=== PATIENT | female | born 2000 | race African-American/Black ===

== ENCOUNTER 2025-03-06 22:35 | Observation (INO) ==
--- NOTE | 2025-03-06 23:09 | Emergency Department Note ---
HPI - Chest Pain General Chief Complaint: Chest Pain Stated Complaint: chest pain, dizziness Time Seen by Provider: 03/06/25 23:00 Source: patient Mode of arrival: walk-in Limitations: no limitations History of Present Illness HPI narrative: This is a 25 year old female patient that presents to the ER with c/o chest pain and N/V today. Patient denies any SOB, back pain, fever, abdominal pain, numbness, tingling, or weakness. patient states this has happened before and dx with anxiety MD complaint: Reports chest pain Onset (ago): hour(s) (3) Timing of current episode: Reports constant Prior episodes: Yes Onset: Reports during rest Pain location: Reports substernal Pain radiation: Reports none Severity: mild Quality: Reports tightness Relieving factors: Reports nothing Exacerbating factors: Reports nothing Associated symptoms: Reports nausea and vomiting Treatment prior to arrival: Reports none Risk Factors Coronary artery disease risk factors: Reports none Thoracic aortic dissection risk factors: Reports none Pulmonary embolism risk factors: Reports none Related Data Allergies Allergy/AdvReac Type Severity Reaction Status Date / Time No Known Drug Allergies Allergy Verified 03/06/25 23:06 Review of Systems Status of ROS 10 or more systems reviewed and unremark able except as noted in history and below Constitutional Denies: fever, chills, change in weight, fatigue, malaise or night sweats Eyes Denies: change in vision, blurry vision, blind spots, light sensitivity, eye discomfort or eye discharge Ears, nose, mouth, and throat Denies: throat pain, neck pain, throat swelling, difficulty swallowing, hoarseness, mouth pain or swelling of lips/tongue Cardiovascular Reports: chest pain; Denies: palpitations, edema, swelling of f eet/ankles, lightheadedness, shortness of breath with exertion or shortness of breath when lying down Respiratory Denies: shortness of breath, cough, wheezing, stridor, pain on inspiration or change in phlegm color Gastrointestinal Reports: nausea and vomiting; Denies: abdominal pain, coffee grounds in vomit, heartburn, diarrhea, constipation, bloating, belching, feeling full early or change in bowel habits Genitourinary Denies: painful urination, urinary frequency, urinary urgency, urinary incontinence, blood in urine, difficulty voiding or decreased urine ouput Musculoskeletal Denies: back pain, neck pain, extremity pain, extremity swelling, joint pain, limited range of motion or joint swelling Integumentary/Breast Denies: rash, itching, redness, skin pain, skin tenderness or skin swelling Neurological Denies: headache, numbness in extremities, weakness in extremities, lack of coordination or dizziness Psychiatric Denies: anxiety, mood swings, panic attacks, change in sleep patter n, hopelessness or loss of interest Endocrine Denies: excessive urination, excessive thirst, fatigue, cold intolerance, excessive sweating or flushing Hematologic/Lymphatic Denies: easy bruising, easy bleeding or enlarged lymph nodes Allergic/Immunologic Denies: hives, throat swelling, tongue swelling, facial sw elling, wheezing or itchy eyes Exam Constitutional: normal general appearance and no apparent distress Vital Signs - 24 hr 03/06/25 23:04 03/06/25 23:09 Temperature 98.3 F Pulse Rate 98 H Respiratory Rate 25 H Blood Pressure 129/72 Pulse Oximetry 100 100 Oxygen Delivery Me thod Room Air Room Air HENMT: normocephalic, head/scalp atraumatic, hearing grossly normal bilaterally, external ears normal, EACs normal, nasal mucous membranes normal, external nose normal, oral mucous membranes normal and oropharynx normal Eyes: PERRL, EOMs intact bilaterally, conjunctivae normal and no scleral icterus Neck/C-Spine: visual inspection normal and trachea midline Lymph: no lymphadenopathy noted Chest: inspection of chest normal and palpation of chest normal Respiratory: breath sounds equal bilaterally, normal respiratory effort, clear to auscultation bilaterally, no wheezes, no rales, no retractions, no use of accessory muscles and chest percussion normal Cardiovascular: heart rate abnormal (tachycardic), regular rhythm noted, no gallop, no rub, no murmur, no JVD, no clicks, peripheral pulses 2+ throughout, no bruits noted and no additional abnormal heart sounds Gastrointestinal: abdomen normal to inspection, abdomen soft to palpation, nontender to palpation, nontender to percussion, nondistended, normoactive bowel sounds, no hepatosplenomegaly, no masses, no pulsatile mass, no ascites and no hernia Genitourinary: no CVA tenderness Back/Pelvis: spine normal to inspection Extremities: normal to inspection, normal to palpation, no tenderness, full ROM, no joint enlargement and no deformity Neurology: final expense agent II-XII intact, no movement abnormality noted, no focal motor deficit noted, no sensory deficits noted, gait normal, speech normal, coordination normal, no pronator drift noted, no fasciculations noted and GCS normal Psychiatry: mental status grossly normal, oriented x3, thought process normal, cooperative and affect normal Skin: skin color normal and no rash Course Course Hospital Course: 0038: VSS, no s/s of acute distress noted. Due to patients low potassium will admit patient to the medical floor. VSS, no s/s of acute distress noted Vital Signs Vital signs: Vital Signs Temperature 98.3 F 03/06/25 23:04 Pulse Rate 98 H 03/06/25 23:04 Respiratory Rate 25 H 03/06/25 23:04 Blood Pressure 129/72 03/06/25 23:04 Pulse Oximetry 100 03/06/25 23:04 Oxygen Delivery Method Room Air 03/06/25 23:04 Temperature 98.3 F 03/06/25 23:04 Pulse Rate 98 H 03/06/25 23:04 Respiratory Rate 25 H 03/06/25 23:04 Blood Pressure 129/72 03/06/25 23:04 Pulse Oximetry 100 03/06/25 23:09 Oxygen Delivery Method Room Air 03/06/25 23:09 MDM - Chest Pain Differential Diagnosis Differential diagnosis: Likely stable angina Medical Records Data Attestation: I reviewed the patient's medical records. Lab Data Attestation: I reviewed the patient's lab results. Labs: Lab Results 03/06/25 03/06/25 Range/Units 22:40 23:20 WBC 9.2 (4.3-9.3) K/uL RBC 3.2 L (4.00-5.50) M/uL Hgb 11.0 L (12.5-15.8) gm/dL Hct 32.4 L (35.9-46.7) % MCV 99.9 H (81.0-93.7) fl MCH 33.9 H (27.6-32.2) pg MCHC 33.9 (33.1-35.3) g/dl RDW 19.4 H (11.4-14.2) % Plt Count 268 (152-353) K/uL MPV 8.3 (6.9-10.8) fl Gran % 80.0 H (47.8-71.3) % Lymph % (Auto) 15.1 L (20.0-43.0) % [place] % (Auto) 4.3 (3.6-9.8) % Eos % (Auto) 0.2 L (0.4-2.8) % Baso % (Auto) 0.4 (0.1-0.85) Lymph # (Auto) 1.4 (1.1-3.1) [place] # (Auto) 0.4 L (1.1-3.1) Eos # (Auto) 0.0 (0.0-0.2) Baso # (Auto) 0.0 (0.0-0.1) Absolute Gran (auto) 7.3 H (2.3-6.0) D-Dimer <100 L (100-600) ng/mL Sodium 135 L (136-145) mmol/L Potassium 2.9 L (3.6-5.2) mmol/L Chloride 95.0 L (98-107) mmol/L Carbon Dioxide 25 (21-32) mmol/L Anion Gap 15.0 H (4-14) mEq/L BUN 9 (7-18) mg/dL Creatinine 0.8 (0.6-1.3) mg/dL Estimated GFR 104.2 (>59.9) Glucose 156 H (70-110) mg/dL Calcium 9.0 (8.5-10.1) mg/dL Total Bilirubin 1.22 H (0.0-1.0) mg/dL AST 178 H (15-37) U/L ALT 41 (30-65) U/L Alkaline Phosphatase 85 (50-136) U/L Troponin I High Sens 5.30 (4.0-60.4) ng/L Total Protein 8.4 H (6.4-8.2) g/dL Albumin 3.8 (3.4-5.0) g/dL Urine Test Negative (Negative) Imaging Data Imaging ordered: Chest x-ray and CT scan - abdomen Attestation: I have reviewed the pertinent imaging results. My impression: cxr: negative ECG Data Attestation: I have reviewed the pertinent ECG results. Discharge Plan Discharge Patient Disposition: Admitted As Observation Chief Complaint: Chest Pain Clinical Impression: Chest pain, Nausea & vomiting, Hypokalemia, Anxiety Print Language: Azeri Referrals: Vishnu Love MD [Primary Care Provider] - Time of Disposition: 00:44 [facility] Medical History Palpitations HTN (hypertension) Social History Smoking status: unknown if ever smoked Feel stressed/tense/nervous/anxious/difficulty sleeping: not at all
[2025-03-06] MEDS: ONDANSETRON HCL/PF 4 MG/2 ML VIAL INJ STA (23:34)
[2025-03-06] MEDS: 0.9 % SODIUM CHLORIDE 1000 ML 1,000 ML IV STA (23:35)
[2025-03-06] MEDS ORDERED: 0.9 % SODIUM CHLORIDE 1000 ML 1,000 ML IV ONE (23:37)
[2025-03-06 23:43] LABS: Basophils%(Percent) Auto 0.4 (0.1-0.85); Eosinophils%(Percent) Auto 0.2 % (0.4-2.8); Granulocytes#(Absolute)- Auto 7.3 (2.3-6.0); Hematocrit 32.4 % (35.9-46.7); Mean Corpuscular Volume 99.9 fl (81.0-93.7); Monocytes #(Absolute)- Auto 0.4 (1.1-3.1); Monocytes %(Percent)- Auto 4.3 % (3.6-9.8); Platelet Count 268 K/uL (152-353); White Blood Count 9.2 K/uL (4.3-9.3)
[2025-03-07 00:01] LABS: Potassium 2.9 mmol/L (3.6-5.2)
[2025-03-07] MEDS ORDERED: POTASSIUM CL 20 MEQ/100 ML SOL 20 MEQ/100 ML PIGGYBACK IV ONE (00:37)
[2025-03-07] MEDS ORDERED: POTASSIUM CHLORIDE 20 MEQ TAB.ER.PRT ONE (00:38)
[2025-03-07] MEDS ORDERED: LORazepam 1 MG TABLET ONE (00:38)
[2025-03-07] MEDS: LORazepam 2 MG/ML VIAL IVP ONE (00:39)
[2025-03-07] MEDS: POTASSIUM CHLORIDE 20 MEQ TAB.ER.PRT PO ONE (00:40)
[2025-03-07] MEDS: LORazepam 1 MG TABLET PO ONE (01:05)
[2025-03-07] MEDS: POTASSIUM CL 20 MEQ/100 ML SOL 40 MEQ/200 ML PIGGYBACK IV ONE (01:06)
[2025-03-07] MEDS: POTASSIUM CL 20 MEQ/100 ML SOL 20 MEQ/100 ML PIGGYBACK IV ONE (01:15)
[2025-03-07] MEDS ORDERED: ONDANSETRON HCL/PF 4 MG/2 ML VIAL IVP PRN (01:29)
[2025-03-07] MEDS: LORazepam 1 MG TABLET PO PRN (02:30)
[2025-03-07] MEDS: 0.9 % SODIUM CHLORIDE 1000 ML 1,000 ML IV SCH (02:33)
[2025-03-07] MEDS: MORPHINE SULFATE 2 MG/ML CARTRIDGE IV PRN (03:10)
[2025-03-07 05:20] LABS: Amphetamine Screen Urine NEG. (NEGATIVE); Cannabinoid Screen Urine NEG. (NEGATIVE); Cocaine Screen Urine NEG. (NEGATIVE); Methadone Screen Urine NEG. (NEGATIVE); Opiate Screen Urine NEG. (NEGATIVE)
[2025-03-07 05:38] LABS: Basophils%(Percent) Auto 0.3 (0.1-0.85); Eosinophils%(Percent) Auto 0.1 % (0.4-2.8); Granulocytes % - Auto 80.1 % (47.8-71.3); Granulocytes#(Absolute)- Auto 6.3 (2.3-6.0); Monocytes #(Absolute)- Auto 0.4 (1.1-3.1); Monocytes %(Percent)- Auto 5.3 % (3.6-9.8); Platelet Count 210 K/uL (152-353); White Blood Count 7.9 K/uL (4.3-9.3)
[2025-03-07 06:28] LABS: Potassium 3.6 mmol/L (3.6-5.2)
[2025-03-07] MEDS ORDERED: 0.9 % SODIUM CHLORIDE 1000 ML 1,000 ML IV SCH (08:00)
[2025-03-07] MEDS ORDERED: SODIUM CHLORIDE 0.9% INJ SCH (08:00)
[2025-03-07] MEDS ORDERED: PHENOBARBITAL SODIUM INJ SCH (08:00)
[2025-03-07] MEDS: PHENobarbitaL sodium 65 MG/ML VIAL ONE (08:06)
[2025-03-07] MEDS ORDERED: PHENobarbitaL sodium 65 MG/ML VIAL ONE ×2 (08:58→09:58)
[2025-03-07] MEDS: 0.9 % SODIUM CHLORIDE 500 ML IV ONE (09:03)
[2025-03-07] MEDS: SODIUM CHLORIDE 0.9% IV PRN (09:17)
[2025-03-07] MEDS: PHENOBARBITAL SODIUM IV PRN (09:17)
[2025-03-07] MEDS: PANTOPRAZOLE SODIUM 40 MG TABLET.DR PO SCH (09:54)
[2025-03-07] MEDS: ENOXAPARIN SODIUM 40 MG/0.4 ML SYRINGE SUBQ SCH (09:54)
[2025-03-07] MEDS: [UNRECOGNIZED DRUG - OTHER] IV SCH (10:18)
[2025-03-07] MEDS: FOLIC ACID IV SCH (10:18)
[2025-03-07] MEDS: 0.9 % SODIUM CHLORIDE 50 ML IV ONE (10:18)
[2025-03-07] MEDS: THIAMINE HCL IV SCH (10:18)
[2025-03-07] MEDS: MULTIVITAMIN IV SCH (10:18)
--- NOTE | 2025-03-07 11:37 | History & Physical Report ---
H&P: HPI History of Present Illness Chief complaint: chest pain, hypokalemia, N/V, anxiety Narrative: This is a 25 year old female patient that presents to the ER with c/o chest pain and N/V today. Patient denies any SOB, back pain, fever, abdominal pain, numbness, tingling, or weakness. patient states this has happened before and dx with anxiety. Admitted patient to med/surg for further observation and treatment. Patient agrees to receive treatment for alcohol abuse at this time. Review of Systems Status of ROS 10 or more systems reviewed and unremark able except as noted in history and below Constitutional Denies: fever, chills, change in weight, fatigue, malaise or night sweats Eyes Denies: change in vision, blurry vision, blind spots, light sensitivity, eye discomfort or eye discharge Ears, nose, mouth, and throat Denies: throat pain, neck pain, throat swelling, difficulty swallowing, hoarseness, mouth pain or swelling of lips/tongue Cardiovascular Reports: chest pain; Denies: palpitations, edema, swelling of feet/ankles, lightheadedness, shortness of breath with exertion or shortness of breath when lying down Respiratory Denies: shortness of breath, cough, wheezing, stridor, pain on inspiration or change in phlegm color Gastrointestinal Reports: nausea and vomiting; Denies: abdominal pain, coffee grounds in vomit, heartburn, diarrhea, constipation, bloating, belching, difficulty swallowing, feeling full early or change in bowel habits Genitourinary Denies: painful urination, urinary frequency, urinary urgency, urinary incontinence, blood in urine, difficulty voiding or decreased urine ouput Musculoskeletal Denies: back pain, neck pain, extremity pain, extremity swelling, joint pain, limited range of motion or joint swelling Integumentary/Breast Denies: rash, itching, redness, skin pain, skin tenderness or skin swelling Neurological Denies: headache, numbness in extremities, weakness in extremities, lack of coordination or dizziness Psychiatric Denies: anxiety, mood swings, panic attacks, change in sleep pattern, hopelessness or loss of interest Endocrine Denies: excessive urination, excessive thirst, fatigue, cold intolerance, excessive sweating or flushing Hematologic/Lymphatic Denies: easy bruising, easy bleeding or enlarged lymph nodes Allergic/Immunologic Denies: hives, throat swelling, tongue swelling, facial swelling, wheezing or itchy eyes PFSH PFSH Medical History Palpitations HTN (hypertension) Social History Smoking status: unknown if ever smoked Problems where you live: no known problems Highest level of school completed/degree received: high school Feel stressed/tense/nervous/anxious/difficulty sleeping: not at all Meds Home Medications and Allergies Home Medications Medication Instructions Recorded Confirmed Type metoprolol tartrate 50 mg tablet 50 mg PO Q12H 03/07/25 03/07/25 History olmesartan 20 mg tablet 20 mg PO DAILY 03/07/25 03/07/25 History Allergies Allergy/AdvReac Type Severity Reaction Status Date / Time No Known Drug Allergies Allergy Verified 03/07/25 02:25 Exam Exam: Patient in myers's position upon entering room for exam. Constitutional: abnormal general appearance (disheveled), distress noted (mild), average body habitus, no limitations and alert Vital Signs - 24 hr 03/06/25 23:04 03/06/25 23:09 03/07/25 00:00 Temperature 98.3 F 98.6 F Pulse Rate 98 H 102 H Pulse Rate [Left] Respiratory Rate 25 H 17 Blood Pressure 129/72 114/74 Blood Pressure [Le ft Arm] Pulse Oximetry 100 100 [facility] Room [facility] 03/07/25 01:00 03/07/25 01:11 03/07/25 01:19 Temperature Pulse Rate 134 H Pulse Rate [Left] 162 H Respiratory Rate 18 Blood Pressure 132/88 114/74 Blood Pressure [Le ft Arm] Pulse Oximetry 98 [facility] Room Air 03/07/25 01:30 03/07/25 01:41 03/07/25 02:00 Temperature Pulse Rate 118 H 119 H Pulse Rate [Left] Respiratory Rate 18 18 Blood Pressure 133/82 139/101 136/84 Blood Pressure [Le ft Arm] Pulse Oximetry 98 98 [facility] Room Air 03/07/25 02:00 03/07/25 02:03 03/07/25 02:33 Temperature 98.6 F 98.8 F Pulse Rate 119 H Pulse Rate [Left] 162 H 126 H Respiratory Rate 18 22 Blood Pressure 136/84 Blood Pressure [Le ft Arm] 139/101 Pulse Oximetry 98 100 Oxygen Delivery Tn thod Room Air 03/07/25 02:36 03/07/25 02:45 03/07/25 03:01 Temperature 98.8 F Pulse Rate Pulse Rate [Left] 126 H 120 H 142 H Respiratory Rate 22 Blood Pressure Blood Pressure [Le ft Arm] 139/101 Pulse Oximetry 100 [facility] 03/07/25 03:04 03/07/25 03:05 03/07/25 03:05 Temperature Pulse Rate Pulse Rate [Left] 136 H 144 H 153 H Respiratory Rate Blood Pressure Blood Pressure [Le ft Arm] Pulse Oximetry Oxygen Delivery Tn thod 03/07/25 03:21 03/07/25 03:32 03/07/25 03:41 Temperature Pulse Rate Pulse Rate [Left] 133 H 124 H 135 H Respiratory Rate Blood Pressure Blood Pressure [Le ft Arm] Pulse Oximetry Oxygen Delivery Tn thod 03/07/25 03:46 03/07/25 04:01 03/07/25 04:05 Temperature 98.6 F Pulse Rate Pulse Rate [Left] 125 H 138 H 115 H Respiratory Rate 18 Blood Pressure Blood Pressure [Le ft Arm] 131/93 Pulse Oximetry 98 [facility] 03/07/25 04:15 03/07/25 04:30 03/07/25 04:57 Temperature Pulse Rate Pulse Rate [Left] 114 H 120 H 97 H Respiratory Rate Blood Pressure Blood Pressure [Le ft Arm] Pulse Oximetry Oxygen Delivery Tn thod 03/07/25 05:30 03/07/25 06:22 03/07/25 08:00 Temperature 98.4 F Pulse Rate Pulse Rate [Left] 108 H 118 H 118 H Respiratory Rate 19 Blood Pressure Blood Pressure [Le ft Arm] 140/100 Pulse Oximetry 98 [facility] HENMT: normocephalic, head/scalp atraumatic, hearing grossly normal bilaterally, external ears normal, EACs normal, nasal mucous membranes normal, external nose normal, oral mucous membranes normal and oropharynx normal Eyes: PERRL, EOMs intact bilaterally, conjunctivae normal and no scleral icterus Neck/C-Spine: visual inspection normal and trachea midline Lymph: no lymphadenopathy noted Chest: inspection of chest normal and palpation of chest normal Respiratory: breath sounds equal bilaterally, normal respiratory effort, clear to auscultation bilaterally, no wheezes, no rales, no retractions, no use of accessory muscles and chest percussion normal Cardiovascular: heart rate abnormal (tachycardic), regular rhythm noted, no gallop, no rub, no murmur, no JVD, no clicks, peripheral pulses 2+ throughout, no bruits noted and no additional abnormal heart sounds Gastrointestinal: abdomen normal to inspection, abdomen soft to palpation, nontender to palpation, nontender to percussion, nondistended, normoactive bowel sounds, no hepatosplenomegaly, no masses, no pulsatile mass, no ascites and no hernia Genitourinary: no CVA tenderness Back/Pelvis: spine normal to inspection Extremities: normal to inspection, normal to palpation, no tenderness, full ROM, no joint enlargement and no deformity Neurology: scalemaker II-XII intact, no movement abnormality noted, no focal motor deficit noted, no sensory deficits noted, gait normal, speech normal, coordination normal, no pronator drift noted, no fasciculations noted and GCS normal Psychiatry: mental status grossly normal, oriented x3, thought process normal, cooperative and affect normal Feel stressed/tense/nervous/anxious/difficulty sleeping: not at all Skin: skin color abnormal Reports (pale), no rash, skin turgor abnormal Reports (tenting), no petechiae, no mottling and nails normal Assessment and Plan Assessment and Plan (1) Alcohol withdrawal delirium, acute, hyperactive: Code(s): F10.931 - Alcohol use, unspecified with withdrawal delirium (2) Chest pain: Qualifiers: Chest pain type: precordial pain Qualified Code(s): R07.2 - Precordial pain Code(s): R07.9 - Chest pain, unspecified (3) Hypokalemia: Code(s): E87.6 - Hypokalemia (4) Tachycardia: Code(s): R00.0 - Tachycardia, unspecified (5) Nausea & vomiting: Qualifiers: Vomiting type: unspecified Qualified Code(s): R11.2 - Nausea with vomiting, unspecified Code(s): R11.2 - Nausea with vomiting, unspecified (6) ETOH abuse: Code(s): F10.10 - Alcohol abuse, uncomplicated (7) Anxiety: Code(s): F41.9 - Anxiety disorder, unspecified (8) HTN (hypertension): Qualifiers: Hypertension type: primary hypertension Qualified Code(s): I10 - Essential (primary) hypertension Code(s): I10 - Essential (primary) hypertension (9) Palpitations: Code(s): R00.2 - Palpitations (10) Anemia: Qualifiers: Anemia type: iron deficiency Iron deficiency anemia type: inadequate dietary iron intake Qualified Code(s): D50.8 - Other iron deficiency anemias Code(s): D64.9 - Anemia, unspecified (11) Hyponatremia: Code(s): E87.1 - Hypo-osmolality and hyponatremia (12) Hypochloremia: Code(s): E87.8 - Other disorders of electrolyte and fluid balance, not elsewhere classified (13) Hypocalcemia: Code(s): E83.51 - Hypocalcemia (14) Elevated bilirubin: Code(s): R17 - Unspecified jaundice (15) Hyperproteinemia: Code(s): E88.09 - Other disorders of plasma-protein metabolism, not elsewhere classified (16) Hypoalbuminemia: Code(s): E88.09 - Other disorders of plasma-protein metabolism, not elsewhere classified (17) Folate deficiency: Code(s): E53.8 - Deficiency of other specified B group vitamins Plan Sodium Chloride 1,000 mls @ 125 mls/hr IV CONT and start banana bag to make total fluids 150 ml per hour Phenobarbital Sodium 260 mg in Sodium Chloride 54 mls @ 100 mls/hr INJ ONCE Pantoprazole Sodium 40 mg PO BID Enoxaparin Sodium 40 mg SUBQ DAILY Folic Acid 1 mg/Thiamine Hcl 100 mg/Multivitamins 10 ml/Magnesium Sulfate 2 gm in Sodium Chloride 1,015.2 mls @ 100 mls/hr IV DAILY restart home metoprolol as she has been out recently Ondansetron Hcl 4 mg IVP Q6H PRN Morphine Sulfate 2 mg IV Q4H PRN Lorazepam 1 mg PO Q6H PRN Phenobarbital Sodium 130 mg in Sodium Chloride 52 mls @ 100 mls/hr IV Q30M PRN CIWA Protocol Results Labs Labs: CBC 03/06/25 03/07/25 Range/Units 23:20 05:30 WBC 9.2 7.9 (4.3-9.3) K/uL RBC 3.2 L 2.8 L (4.00-5.50) M/uL Hgb 11.0 L 9.3 L (12.5-15.8) gm/dL Hct 32.4 L 28.0 L (35.9-46.7) % Plt Count 268 210 (152-353) K/uL Gran % 80.0 H 80.1 H (47.8-71.3) % Lymph % (Auto) 15.1 L 14.2 L (20.0-43.0) % [place] % (Auto) 4.3 5.3 (3.6-9.8) % Eos % (Auto) 0.2 L 0.1 L (0.4-2.8) % Baso % (Auto) 0.4 0.3 (0.1-0.85) Lymph # (Auto) 1.4 1.1 (1.1-3.1) [place] # (Auto) 0.4 L 0.4 L (1.1-3.1) Eos # (Auto) 0.0 0.0 (0.0-0.2) Baso # (Auto) 0.0 0.0 (0.0-0.1) Absolute Gran (auto) 7.3 H 6.3 H (2.3-6.0) CMP 03/06/25 03/07/25 23:20 05:30 Sodium 135 L 138 Potassium 2.9 L 3.6 Chloride 95.0 L 101.0 Carbon Dioxide 25 28 BUN 9 7 Creatinine 0.8 0.6 Glucose 156 H 95 Calcium 9.0 8.1 L Liver Function 03/06/25 03/07/25 Range/Units 23:20 05:30 Total Bilirubin 1.22 H 1.11 H (0.0-1.0) mg/dL AST 178 H 148 H (15-37) U/L ALT 41 32 (30-65) U/L Alkaline Phosphatase 85 69 (50-136) U/L Albumin 3.8 3.1 L (3.4-5.0) g/dL Pulse Oximetry Attestation: I have reviewed the pertinent pulse oximetry results. ECG Attestation: I have reviewed the pertinent ECG results. Prior ECG tracings: available for review Imaging Imaging ordered: Chest x-ray and CT scan - abdomen Radiologist's impression: XR CHEST 1V Date of Service: 03/06/25 HISTORY: CHEST pain; COMPARISON: Prior study or studies were utilized for comparison during interpretation with the most relevant dated 04/23/2024 TECHNIQUE: XR CHEST 1V FINDINGS: Chest: Lines and tubes: None Mediastinum: Cardiac and mediastinal shadow is within normal limits for size and contour. Pulmonary vessels: No pulmonary vascular congestion. Lung mauricio: No suspicious airspace opacity. Pleura: No effusion. No pneumothorax. Bones and soft tissues: No acute osseous or soft tissue abnormality. Dextroscoliosis of the thoracic spine IMPRESSION: 1. No acute cardiopulmonary abnormality CT Abdomen and Pelvis without IV Contrast. Date of Service: 03/07/25 HISTORY: Nausea and vomiting. TECHNIQUE: Axial images were performed through the abdomen and pelvis without the administration of IV contrast with multiplanar reformations . Oral contrast was notadministered . Dose reduction techniques including Automated Exposure Control (AEC) and adjustment of mA and kV were utilized .. COMPARISON: 05/20/2023. TECHNICAL QUALITY: Satisfactory. FINDINGS: Clear lung bases. Liver, spleen, adrenals, pancreas show no abnormality. Kidneys show no stones or obstruction. Normal biliary tract. No ascites or pneumoperitoneum. Normal aorta. No lymphadenopathy. No bowel obstruction or inflammation. Normal appendix. Pelvis shows no masses or free fluid with unremarkable reproductive organs and urinary bladder. No acute bony abnormality. Moderate roto scoliosis present. IMPRESSION: No acute abnormality identified.
[2025-03-07] MEDS: METOPROLOL TARTRATE 25 MG TABLET PO ONE (13:42)
[2025-03-07] MEDS: METOPROLOL TARTRATE 25 MG TABLET PO SCH (20:08)
[2025-03-07 21:53] LABS: Amphetamine Screen Urine NEG. (NEGATIVE); Cannabinoid Screen Urine NEG. (NEGATIVE); Cocaine Screen Urine NEG. (NEGATIVE); Methadone Screen Urine NEG. (NEGATIVE); Opiate Screen Urine NEG. (NEGATIVE)
[2025-03-07 21:57] LABS: Urine Appearance CLEAR (CLEAR); Urine Blood NEGATIVE (NEG - TRACE); Urine Color YELLOW (STRAW/YELL.); Urine Urobilinogen Normal (NORMAL)
[2025-03-08] MEDS: HYDRALAZINE HCL 20 MG/ML VIAL IVP ONE (00:33)
[2025-03-08] MEDS: LOPERAMIDE HCL 2 MG CAPSULE PO ONE (04:42)
[2025-03-08 05:38] LABS: Basophils%(Percent) Auto 0.3 (0.1-0.85); Eosinophils#(Absolute)Auto 0.1 (0.0-0.2); Eosinophils%(Percent) Auto 1.6 % (0.4-2.8); Granulocytes % - Auto 67.6 % (47.8-71.3); Granulocytes#(Absolute)- Auto 5.1 (2.3-6.0); Hematocrit 27.9 % (35.9-46.7); Mean Corpuscular Volume 101.6 fl (81.0-93.7); Monocytes #(Absolute)- Auto 0.5 (1.1-3.1); Platelet Count 204 K/uL (152-353); White Blood Count 7.5 K/uL (4.3-9.3)
[2025-03-08 05:51] LABS: Potassium 3.3 mmol/L (3.6-5.2)
[2025-03-08 05:53] LABS: INR 0.87
[2025-03-08 08:19] VITALS: TEMP 98.2
[2025-03-08] MEDS: MAGNESIUM OXIDE 400 MG TABLET PO ONE (10:31)
[2025-03-08] MEDS: POTASSIUM PHOSPHATE 500 MG TABLET.SOL PO ONE (10:31)
[2025-03-08] MEDS: POTASSIUM CHLORIDE 20 MEQ TAB.ER.PRT PO ONE (10:31)
[2025-03-08 12:39] VITALS: BP 140/95; PULSE 90; RESP 16
--- NOTE | 2025-03-08 15:08 | Discharge Summary ---
DS: Providers Provider Date of admission: 03/07/25 00:48 Primary care physician: Vishnu Love MD Admitting clinician: Eulalia Rueda Attending physician on admission: Katherine Vaz Attending physician on discharge: Katherine Vaz Discharging clinician: Katherine Vaz Anticipated date of discharge: 03/08/25 DS: Diagnosis Discharge Diagnosis (1) Alcohol withdrawal delirium, acute, hyperactive: (2) Chest pain: Qualifiers: Chest pain type: precordial pain Qualified Code(s): R07.2 - Precordial pain (3) Hypokalemia: (4) Tachycardia: (5) Nausea & vomiting: Qualifiers: Vomiting type: unspecified Qualified Code(s): R11.2 - Nausea with vomiting, unspecified (6) ETOH abuse: (7) Anxiety: (8) HTN (hypertension): Qualifiers: Hypertension type: primary hypertension Qualified Code(s): I10 - Essential (primary) hypertension (9) Palpitations: (10) Anemia: Qualifiers: Anemia type: iron deficiency Iron deficiency anemia type: inadequate dietary iron intake Qualified Code(s): D50.8 - Other iron deficiency anemias (11) Hyponatremia: (12) Hypochloremia: (13) Hypocalcemia: (14) Elevated bilirubin: (15) Hyperproteinemia: (16) Hypoalbuminemia: (17) Folate deficiency: Plan Sodium Chloride 1,000 ml IV ONCE Potassium Chloride 40 meq in 200 ml IV ONCE Lorazepam 1 mg IVP ONCE Potassium Chloride 40 meq PO ONCE Potassium Chloride 20 meq in 100 mls IV Lorazepam 1 mg PO ONCE Potassium Chloride 20 meq in 100 mls IV ONCE Ondansetron Hcl 4 mg IVP Q6H PRN Lorazepam 1 mg PO Q6H PRN Sodium Chloride 500 ml IV ONCE Sodium Chloride 1,000 mls IV CONT Phenobarbital Sodium 260 mg in Sodium Chloride 50 mls INJ ONCE Phenobarbital Sodium 260 mg ONCE Phenobarbital Sodium 130 mg in Sodium Chloride 50 ml IV Q30M Phenobarbital Sodium 130 mg ONCE Enoxaparin Sodium 40 mg SUBQ DAILY Folic Acid 1 mg Thiamine Hcl 100 mg Multivitamin 10 ml INJ 10 ml Magnesium Sulfate 1 gm/2ml 2 gm in Sodium Chloride 1,000 ml IV DAILY Pantoprazole Sodium 40 mg PO BID Phenobarbital Sodium 130 mg ONCE Sodium Chloride 50 ml IV Metoprolol Tartrate 50 mg PO BID Hydralazine Hcl 10 mg IVP ONCE Loperamide Hcl 4 mg PO ONCE Magnesium Oxide 800 mg PO ONCE Potassium Chloride 40 meq PO ONCE Potassium Phosphate 500 mg PO ONCE Discharge home for self care. DS: Summary Hospital Course Hospital Course: This is a 25 year old female patient that presents to the ER with c/o chest pain and N/V today. Patient denies any SOB, back pain, fever, abdominal pain, numbness, tingling, or weakness. patient states this has happened before and dx with anxiety. Admitted patient to med/surg for further observation and treatment. Patient agrees to receive treatment for alcohol abuse at this time. Day two of hospital stay, patient HR has improved and able to ambulate without orthostatic hypertension. Electrolytes replaced prior to discharge. Patient is ready to discharge home for self care. Follow up with PCP in 1-3 days of discharge or prior if needed. Status at Discharge Functional status at discharge: independent ambulation Overall status at discharge: patient is back to baseline Time Spent with Patient Time attestation: Total time spent providing and/or coordinating discharge services:44 Time spent: greater than 30 minutes Exam Exam: Patient in NAD. Constitutional: abnormal general appearance (disheveled), no apparent distress, average body habitus, no limitations and alert Vital Signs - 24 hr 03/07/25 16:00 03/07/25 20:16 03/08/25 00:22 Temperature 98.2 F 97.8 F 98.2 F Pulse Rate Pulse Rate [Left] 97 H 95 H 91 H Respiratory Rate 19 21 22 Blood Pressure Blood Pressure [Le ft Arm] 120/90 144/106 163/120 Pulse Oximetry 100 100 [facility] 03/08/25 00:40 03/08/25 02:06 03/08/25 04:30 Temperature 98.3 F Pulse Rate Pulse Rate [Left] 95 H Respiratory Rate 20 Blood Pressure 163/120 155/112 Blood Pressure [Le ft Arm] 133/97 Pulse Oximetry [facility] 03/08/25 04:49 03/08/25 08:17 03/08/25 09:00 Temperature 98.2 F Pulse Rate Pulse Rate [Left] 84 Respiratory Rate 19 Blood Pressure 133/97 134/96 Blood Pressure [Le ft Arm] 134/96 Pulse Oximetry 99 Oxygen Delivery Me thod Room Air 03/08/25 09:33 03/08/25 12:35 Temperature 98.2 F Pulse Rate 84 Pulse Rate [Left] 90 Respiratory Rate 16 Blood Pressure Blood Pressure [Le ft Arm] 140/95 Pulse Oximetry 94 L Oxygen Delivery Hi thod Room Air HENMT: normocephalic, head/scalp atraumatic, hearing grossly normal bi laterally, external ears normal, EACs normal, nasal mucous membranes normal, external nose normal, oral mucous membranes normal and oropharynx normal Eyes: PERRL, EOMs intact bilaterally, conjunctivae normal and no scleral icterus Neck/C-Spine: visual inspection normal and trachea midline Lymph: no lymphadenopathy noted Chest: inspection of chest normal and palpation of chest normal Respiratory: breath sounds equal bilaterally, normal respiratory effort, clear to auscultation bilaterally, no wheezes, no rales, no retractions, no use of accessory muscles and chest percussion normal Cardiovascular: normal heart rate noted, regular rhythm noted, no gallop, no rub, no murmur, no JVD, no clicks, peripheral pulses 2+ throughout, no bruits noted and no additional abnormal heart sounds Gastrointestinal: abdomen normal to inspection, abdomen soft to palpation, nontender to palpation, nontender to percussion, nondistended, normoactive bowel sounds, no hepatosplenomegaly, no masses, no pulsatile mass, no ascites and no hernia Genitourinary: no CVA tenderness Back/Pelvis: spine normal to inspection Extremities: normal to inspection, normal to palpation, no tenderness, full ROM, no joint enlargement and no deformity Neurology: mechanic industrial truck II-XII intact, no movement abnormality noted, no focal motor deficit noted, no sensory deficits noted, gait normal, speech normal, coordination normal, no pronator drift noted, no fasciculations noted and GCS normal Psychiatry: mental status grossly normal, oriented x3, thought process normal, cooperative and affect normal Skin: skin color normal, no rash, skin turgor normal, no petechiae, no mottling and nails normal DS: Data Data Completed and Pending Labs on day of discharge: Labs from last 24 hours 03/08/25 03/07/25 03/07/25 05:15 21:08 12:57 WBC 7.5 RBC 2.8 L Hgb 9.3 L Hct 27.9 L MCV 101.6 H MCH 34.0 H MCHC 33.5 RDW 19.7 H Plt Count 204 MPV 8.5 Gran % 67.6 Lymph % (Auto) 24.5 [place] % (Auto) 6.0 Eos % (Auto) 1.6 Baso % (Auto) 0.3 Lymph # (Auto) 1.9 [place] # (Auto) 0.5 L Eos # (Auto) 0.1 Baso # (Auto) 0.0 Absolute Gran (auto) 5.1 PT 12.3 PT Normal Control 13.7 INR 0.87 APTT 30.3 Sodium 139 Potassium 3.3 L Chloride 105.0 Carbon Dioxide 26 Anion Gap 8.0 BUN 2 L Creatinine 0.5 L Estimated GFR 132.6 Glucose 93 Calcium 8.0 L Phosphorus 2.4 L Magnesium 1.6 L Total Bilirubin 0.21 AST 57 H ALT 23 L Alkaline Phosphatase 65 Total Protein 6.6 Albumin 2.9 L Urine Color Yellow Urine Appearance Clear Ur Specific [place] 1.010 Urine Protein Negative Urine Glucose (UA) Normal Urine Ketones Negative Urine Occult Blood Negative Urine Nitrite Negative Urine Bilirubin Negative Urine Urobilinogen Normal Ur Leukocyte Esterase Negative Fluid pH 7.0 Urine Opiates Screen Neg. Urine Methadone Screen Neg. Barbiturate Screen Pos. Ur Phencyclidine Scrn Neg. Amphetamines Screen Neg. U Benzodiazepines Scrn Neg. Urine Cocaine Screen Neg. U Marijuana (THC) Screen Neg. Imaging Chest x-ray: Radiologist's impression: XR CHEST 1V Date of Service: 03/06/25 HISTORY: CHEST pain; COMPARISON: Prior study or studies were utilized for comparison during interpretation with the most relevant dated 04/23/2024 TECHNIQUE: XR CHEST 1V FINDINGS: Chest: Lines and tubes: None Mediastinum: Cardiac and mediastinal shadow is within normal limits for size and contour. Pulmonary vessels: No pulmonary vascular congestion. Lung mauricio: No suspicious airspace opacity. Pleura: No effusion. No pneumothorax. Bones and soft tissues: No acute osseous or soft tissue abnormality. Dextroscoliosis of the thoracic spine IMPRESSION: 1. No acute cardiopulmonary abnormality CT scan - abdomen: Radiologist's impression: CT Abdomen and Pelvis without IV Contrast. Date of Service: 03/07/25 HISTORY: Nausea and vomiting. TECHNIQUE: Axial images were performed through the abdomen and pelvis without the administration of IV contrast with multiplanar reformations . Oral contrast was not administered . Dose reduction techniques including Automated Exposure Control (AEC) and adjustment of mA and kV were utilized .. COMPARISON: 05/20/2023. TECHNICAL QUALITY: Satisfactory. FINDINGS: Clear lung bases. Liver, spleen, adrenals, pancreas show no abnormality. Kidneys show no stones or obstruction. Normal biliary tract. No ascites or pneumoperitoneum. Normal aorta. No lymphadenopathy. No bowel obstruction or inflammation. Normal appendix. Pelvis shows no masses or free fluid with unremarkable reproductive organs and urinary bladder. No acute bony abnormality. Moderate roto scoliosis present. IMPRESSION: No acute abnormality identified. Discharge Plan Discharge Disposition: Home, Self-Care Condition: Improved Discharge Medications: Continued metoprolol tartrate 50 mg tablet 50 mg PO Q12H olmesartan 20 mg tablet 20 mg PO DAILY Patient Comments: TAKE 1 TABLET BY MOUTH ONCE DAILY Discharge Orders: Discharge Order (Routine); Ordered 03/08/25 Ordered By: Katherine Vaz Activity: increase activity as tolerated Diet: advance to your usual diet Diet Detail: increase water in diet Interventions: Discharge Assessment Last Done: 03/08/25 12:45 MED/SURG & ICU Observation Charge Sheet Last Done: 03/08/25 12:46 Patient Instructions: Chest Pain (DC), Abuse of Alcohol (DC), Alcohol Withdrawal (DC) Activity Restrictions/Additional Instructions: follow up PCP 1-[address] Mares, see if medicine intervention needed to help alcohol relapse patient declines inpatient and/or outpatient rehab and states she will never touch another drop of alcohol. will seek support from family and friends that do not drink and will avoid situations that she used to drink at. Forms: Portal/Health Info Access Inst Follow-Ups: Vishnu Love MD [Primary Care Provider] - 03/13/25 10:00 am Discharge Date/Time: 03/08/25 13:49
== END 2025-03-08 13:49 | disposition home or self-care (01) ==
LOC: ED 22:35 → MS 22:35
PROVIDERS: ADMIT Nurse Practitioner Family; ATTEND Family Medicine
DX: Z79.899 Other long term (current) drug therapy; E87.6 Hypokalemia; R00.2 Palpitations; F10.131 Alcohol abuse with withdrawal delirium; E80.6 Other disorders of bilirubin metabolism; E87.8 Other disorders of electrolyte and fluid balance, not elsewhere classified; I10 Essential (primary) hypertension; F41.9 Anxiety disorder, unspecified; E53.8 Deficiency of other specified B group vitamins; E83.51 Hypocalcemia; Z71.41 Alcohol abuse counseling and surveillance of alcoholic; R07.2 Precordial pain; R11.2 Nausea with vomiting, unspecified; E87.1 Hypo-osmolality and hyponatremia; D50.8 Other iron deficiency anemias; I49.3 Ventricular premature depolarization; R00.0 Tachycardia, unspecified; E88.09 Other disorders of plasma-protein metabolism, not elsewhere classified